=== PATIENT | male | born 1950 | race Caucasian/White ===

== ENCOUNTER 2023-08-24 07:07 | Day surgery (SDC) | payer OTHER ==
--- NOTE | 2023-08-22 14:19 | RAD REPORT ---
EXAM DESCRIPTION: RAD - Chest Pa And Lat (2 Views) - 08/22/2023 2:10 pm CLINICAL HISTORY: Pre op pending renal artery angiogram Chest pain. COMPARISON: No comparisons TECHNIQUE: PA and lateral views of the chest were obtained. FINDINGS: The lungs are hyperexpanded compatible with COPD. The heart is upper limit of normal in si ze. No fracture or aggressive bony process. IMPRESSION: COPD without acute process identified. The USPSTF recommends annual screening for lung cancer with low-dose CT (LDCT) in adults aged 50 to 80 years who have a 20 pack-year smoking history and currently smoke or have quit within the past 15 years.
[2023-08-22 14:36] LABS: Absolute Lymphocytes (CBC) 1.9 K/uL (0.7-4.9); Lymphocytes % 21.6 % (15.3-44.8); MCV 85.8 fL (80-100); MPV 8.7 fL (7.6-11.3); Platelets 213 thou/uL (152-406); RBC Red Blood Cell Count 4.55 M/uL (4.33-5.43)
[2023-08-22 14:40] LABS: Protime INR 1.08
[2023-08-22 14:42] LABS: Potassium 3.3 mEq/L (3.5-5.1)
--- NOTE | 2023-08-23 12:56 | EKG ---
Test Date: 2023-08-22 Test Time: 13:56:30 Railcar Brake Operator: CECILLE MEASUREMENT RESULTS: Intervals: Rate: 66 TX: 184 QRSD: 88 QT: 408 QTc: 427 Casco: P: 75 TX: 184 QRS: 56 T: 75 INTERPRETIVE STATEMENTS: Normal sinus rhythm Low voltage QRS Borderline ECG Compared to ECG 12/26/2006 07:49:03 Low QRS voltage now present Electronically Signed On 08-23-23 12:54:48 CDT by Valdez Wade
[2023-08-24] MEDS ORDERED: NA CHLORIDE 0.9% 500 ML ONE (07:25)
[2023-08-24] MEDS ORDERED: LIDOCAINE 1% 20 ML MDV ONE (10:37)
[2023-08-24] MEDS ORDERED: MIDAZOLAM HCL 2 MG/2 ML INJ ONE (10:37)
[2023-08-24] MEDS ORDERED: HEPA 1000U/500MLS 2,000 UNIT/1,000 ML BAG IV ONE (10:37)
[2023-08-24] MEDS ORDERED: FENTANYL CITR 100 MCG/2 ML ONE (10:37)
[2023-08-24] MEDS ORDERED: VERAPAMIL HCL 10 MG/4 ML VIAL IV ONE (10:38)
[2023-08-24] MEDS ORDERED: HEPARIN 5000 UNIT/ML 1 ML VIAL ONE (10:38)
[2023-08-24] MEDS ORDERED: HEPARIN 10,000 UNIT/10 ML VIAL IV ONE (10:38)
[2023-08-24] MEDS ORDERED: NITROGLYCERIN/D5W 25 MG/250 ML BTL IV ONE (10:38)
--- NOTE | 2023-08-24 12:20 | OP ---
Date of Procedure: 08/24/2023 Surgeon: PARESH HSU Procedure Performed: Selective bilateral renal angiogram. Indication: Renal artery stenosis by Doppler. Access: Right radial artery 6-Romansh closed with TR band. Complications: None. Bleeding: Less than 20 mL. Anesthesia: Total sedation time was 30 minutes. Description Of Procedure: After risks, benefits, and alternatives were explained, patient agreed to proceed and signed informed consent. Patient was brought into the cardiac catheterization laboratory , prepped and draped in sterile fashion. Then, I accessed right radial artery using arteries and ped iatric micropuncture kit, placed a 6-Romansh Slender sheath and took a long 6-Romansh JR4 catheter into the abdominal aorta and engaged the left renal artery and took standard views and the right renal ar ba, took standard views and then removed the catheter and sheath, placed TR band with good hemostas is. Findings: 1.Left renal artery has ostial to proximal 60% stenosis. A very large artery, lumen is huge still. 2.The right renal artery has ostial 40% stenosis. Conclusion: Moderate renal artery stenosis bilaterally, worse on the left. Plan: Medical management. Repeat Doppler in 1 year. SR/MODL Voice ID: [id number] Report ID: [id number]
[2023-08-24 12:23] VITALS: BP 138/63; O2SAT 99
== END 2023-08-24 12:50 | disposition home or self-care (01) ==
LOC: PRE 07:07
PROVIDERS: ATTEND Internal Medicine
DX: I70.1 Atherosclerosis of renal artery (principal); I10 Essential (primary) hypertension; I34.0 Nonrheumatic mitral (valve) insufficiency; I51.7 Cardiomegaly; G47.30 Sleep apnea, unspecified; E78.5 Hyperlipidemia, unspecified; Z79.899 Other long term (current) drug therapy
CPT/HCPCS: 93005; 85025; 80048; 36415; 85610; 85730; 71046; 36251; 76937; C1893; J1644; J2001; J2250; J3010; J7040; 36252

== ENCOUNTER 2024-12-10 13:00 | Day surgery (SDC) | payer OTHER ==
[2024-12-05 08:49] LABS: Absolute Eosinophils 0.2 K/uL (0-0.5); Absolute Lymphocytes (CBC) 1.6 K/uL (0.7-4.9); Absolute Monocytes 0.8 K/uL (0.1-1.3); Absolute Neutrophil 4.5 K/uL (1.8-8.0); Basophils % 0.6 % (0-1.3); Eosinophils % 3.4 % (0-4.4); Hematocrit 42.9 % (39.6-49.0); Hemoglobin 14.3 g/dL (13.6-17.9); Lymphocytes % 21.9 % (15.3-44.8); MCH 28.5 pg (27.0-35.0); MCHC 33.2 g/dL (32.0-36.0); MCV 85.7 fL (80-100); MPV 8.3 fL (7.6-11.3); Monocytes % 11.4 % (3.3-12.3); Neutrophils % 62.7 % (41.7-73.7); Nucleated Red Blood Cells % 0.2 % (0-0); Platelets 243 thou/uL (152-406); RBC Red Blood Cell Count 5.01 M/uL (4.33-5.43); Red Cell Distribution Width 15.1 % (12.1-15.2)
[2024-12-05 09:05] LABS: Anion Gap 8.6 mEq/L (5.0-15.0); Potassium 3.6 mEq/L (3.5-5.1)
[2024-12-05 09:09] LABS: PT Prothrombin Time 11.6 SECONDS (9.4-12.5); PTT, Activated Partial Thromb 34.2 SECONDS (24.3-36.9); Protime INR 1.04
--- NOTE | 2024-12-05 11:35 | RAD REPORT ---
EXAMINATION: TWO VIEW CHEST XR CLINICAL INDICATION: Male, 74 years old. [facility] Pre-op pending renal angiogram. Hypertension TECHNIQUE: 2 view radiographs of the chest were performed. COMPARISON: No prior exam. FINDINGS: Decreased inspiratory effort limiting evaluation. Left basilar streaky opacities, could represent ate lectasis although early pneumonia cannot be excluded. No pneumothorax or sizable effusion. The heart is normal in size. Mediastinal contours are unremarkable. IMPRESSION: Left basilar streaky opacities, could represent atelectasis versus early pneumonia.
--- NOTE | 2024-12-09 10:57 | EKG ---
Test Date: 2024-12-05 Test Time: 09:24:44 Rework Machine Operator: OLIVER MEASUREMENT RESULTS: Intervals: Rate: 59 FL: 180 QRSD: 86 QT: 420 QTc: 415 Counselor: P: 48 FL: 180 QRS: 43 T: 75 INTERPRETIVE STATEMENTS: Sinus bradycardia Otherwise normal ECG Compared to ECG 08/22/2023 13:56:30 Sinus rhythm no longer present Electronically Signed On 12-09-24 10:51:48 HEAT AND FROST INSULATOR by Juan José Granados
[2024-12-10] MEDS ORDERED: NA CHLORIDE 0.9% 500 ML ONE (13:23)
[2024-12-10] MEDS ORDERED: LIDOCAINE 1% 20 ML MDV ONE (14:05)
[2024-12-10] MEDS ORDERED: HEPA 1000U/500MLS 2,000 UNIT/1,000 ML BAG IV ONE (14:05)
[2024-12-10] MEDS ORDERED: HEPARIN 10,000 UNIT/10 ML VIAL IV ONE (14:34)
[2024-12-10] MEDS ORDERED: FENTANYL CITR 100 MCG/2 ML ONE (14:44)
[2024-12-10] MEDS ORDERED: MIDAZOLAM HCL 2 MG/2 ML INJ ONE (14:44)
--- NOTE | 2024-12-11 01:23 | OP ---
Date of Procedure: 12/10/2024 Surgeon: PARESH HSU Procedure Performed: Selective bilateral renal artery angiogram. Indication: Renal artery stenosis. Access: Right common femoral artery 5-Uzbek, closed with 5-Uzbek Mynx closure device. Complications: None. Bleeding: Less than 50 mL. Anesthesia: Total sedation time was 45 minutes, used fentanyl, Versed. Description Of Procedure: After risks, benefits, and alternatives were explained, the patient agreed to procedure and signed informed consent. [facility], prepped and draped in usual sterile fashion. Then, I accessed right common femoral artery us ing micropuncture kit, ultrasound guidance, fluoroscopy, placed 5-Uzbek pinnacle sheath, and took a 4-Uzbek BALDO catheter, engaged the left renal artery, took standard views and then the right renal ar ba, took standard views, and then removed the catheter and the sheath and 5-Uzbek Mynx closure dev ice was used for closure with good hemostasis. Findings: 1.Right renal artery, proximal 40% stenosis. 2.Left renal artery, proximal 50% to 60% stenosis, very large arteries. Conclusion: Moderate bilateral renal artery stenosis, stable. Recommendation: Medical management. SR/MODL Voice ID: [id number] Report ID: [id number]
[2024-12-13 01:26] VITALS: BP 141/70; TEMP 97.5; O2SAT 99
== END 2024-12-10 17:15 | disposition home or self-care (01) ==
LOC: CCL 13:00
PROVIDERS: ATTEND Internal Medicine
DX: I70.1 Atherosclerosis of renal artery (principal); I10 Essential (primary) hypertension; E78.2 Mixed hyperlipidemia; I34.0 Nonrheumatic mitral (valve) insufficiency; R09.89 Other specified symptoms and signs involving the circulatory and respiratory systems; Z79.899 Other long term (current) drug therapy
CPT/HCPCS: 93005; 85025; 80048; 36415; 85610; 85730; 71046; 36252; 76937; C1893; Q9966; J2003; J2250; J3010; J7040; C1760; 99152; 99153